=== PATIENT | male | born 2000 | race African-American/Black ===

== ENCOUNTER 2020-01-28 16:57 | Emergency (ER) | payer SELFPAY ==
[~2020-01-28] VITALS: Ht 177.8 cm; Wt 141.0 kg
[2020-01-28 17:11] VITALS: BP 146/89
== END 2020-01-28 20:09 | disposition home or self-care (01) ==
LOC: ER 17:06
DX: Z76.89 Persons encountering health services in other specified circumstances (principal)
CPT/HCPCS: 93005; 99283

== ENCOUNTER 2021-05-25 23:12 | Inpatient (IN) | payer OTHER ==
[~2021-05-25] VITALS: Ht 180.3 cm; Wt 196.9 kg
[2021-05-25] MEDS ORDERED: IPRATROPIUM BROMIDE (0.02%) 0.5MG/2.5ML NEB HHN STA (23:25)
[2021-05-26] VITALS (7 sets, daily range): BP systolic 100–141; BP diastolic 52–82
[2021-05-26 00:05] LABS: BASOPHILS % 0.3 % (0.0-2.0); EOSINOPHILS % 2.4 % (0.0-5.0); HEMATOCRIT. 37.2 % (42.0-52.0); HEMOGLOBIN. 12.2 g/dL (14.0-18.0); LYMPHOCYTES % 14.6 % (20.0-50.0); MEAN CORPUSCULAR HEMOGLOBIN 23.5 pg (28.0-32.0); MEAN CORPUSCULAR VOLUME 71.9 fL (80.0-94.0); MEAN PLATELET VOLUME 7.3 fl (7.4-10.4); MONOCYTES % 3.9 % (2.0-8.0); NEUTROPHILS % 78.8 % (40.0-76.0); PLATELET 355 x1000/uL (130-400); RED BLOOD CELL COUNT 5.18 mill/uL (4.7-6.1); RED CELL DISTRIBUTION WIDTH 18.7 % (11.6-14.6)
[2021-05-26 00:10] LABS: CHLORIDE 107 mEq/L (98-107)
[2021-05-26] MEDS: ALBUTEROL (0.083%) 2.5MG/3ML NEB HHN SCH ×2 (00:32→01:07)
[2021-05-26] MEDS ORDERED: IPRATROPIUM BROMIDE (0.02%) 0.5MG/2.5ML NEB HHN STA (00:35)
[2021-05-26] MEDS ORDERED: SODIUM CHLORIDE 0.9% 1,000 ML IV ONE (00:45)
[2021-05-26] MEDS ORDERED: LORAZEPAM 1MG TABLET PO ONE (01:00)
[2021-05-26] MEDS ORDERED: LORAZEPAM 2MG/ML CPJ IV ONE (01:30)
[2021-05-26 01:36] LABS: *AMPHETAMINES SCREEN URINE NEGATIVE (NEGATIVE); *BARBITURATES SCREEN URINE NEGATIVE (NEGATIVE); *BENZODIAZEPINES SCREEN URINE PRESUMTIVE POSITIVE (NEGATIVE); *COCAINE SCREEN URINE NEGATIVE (NEGATIVE)
[2021-05-26 01:37] LABS: CANNABINOID URINE SCREEN NEGATIVE (NEGATIVE); METHADONE URINE SCREEN NEGATIVE (NEGATIVE); OPIATES URINE SCREEN NEGATIVE (NEGATIVE); PHENCYCLIDINE URINE SCREEN NEGATIVE (NEGATIVE)
[2021-05-26] MEDS ORDERED: ADENOSINE 3 MG/ML 2ML VIAL IV ONE (02:00)
[2021-05-26] MEDS ORDERED: DIPHENHYDRAMINE 50MG/ML VIAL IV ONE (02:15)
[2021-05-26] MEDS: METOPROLOL TARTRATE 50MG TABLET PO SCH ×2 (05:32→18:05)
[2021-05-26] MEDS: ACETAMINOPHEN 325MG TABLET PO PRN (10:16)
[2021-05-26] MEDS ORDERED: CEFTRIAXONE 1 G PREMIX 50 ML IV SCH (11:00)
[2021-05-26] MEDS ORDERED: ONDANSETRON 4MG/5ML UDC PO NR (13:00)
[2021-05-26] MEDS: IPRATROPIUM BROMIDE (0.02%) 0.5MG/2.5ML NEB HHN SCH ×3 (13:08→21:16)
[2021-05-26] MEDS ORDERED: IPRATROPIUM/ALBUTEROL 0.5-3(2.5)MG/3ML NEB HHN PRN (14:00)
[2021-05-26] MEDS: CEFTRIAXONE 1,000 MG in DEXTROSE 5% WATER 50 ML IV SCH (15:03)
[2021-05-26] MEDS: AZITHROMYCIN 500 MG in DEXT 5% WATER 250 ML IV SCH (16:06)
[2021-05-26] MEDS: GUAIFENESIN 600MG ER TABLET PO SCH (22:19)
[2021-05-27] VITALS (11 sets, daily range): BP systolic 93–144; BP diastolic 40–93
[2021-05-27] MEDS: IPRATROPIUM BROMIDE (0.02%) 0.5MG/2.5ML NEB HHN SCH ×4 (02:14→21:25)
[2021-05-27] MEDS: METOPROLOL TARTRATE 50MG TABLET PO SCH (06:15)
[2021-05-27] MEDS: GUAIFENESIN 600MG ER TABLET PO SCH ×2 (09:29→20:49)
[2021-05-27 12:45] LABS: BG BASE EXCESS -0.2 mmol/L (-2.0-2.0); BG CARBOXYHEMOGLOBIN 0.2 % (0.5-1.5); BG FRACTION INSPIRED OXYGEN 21; BG HCO3 ACT 24.5 mmol/L (22.0-26.0); BG METHEMOGLOBIN 0.2 % (0.0-1.5); BG OXYHEMOGLOBIN 92.6 % (94.0-97.0); BG PCO2 40.5 mmHg (35.0-45.0); BG PO2 66.4 mmHg (75.0-100.0); BG SAMPLE SITE RIGHT RADIAL; BG TOTAL HEMOGLOBIN 12.6 g/dL (12.0-18.0); BG VENT MODE ROOM AIR
[2021-05-27] MEDS: CEFTRIAXONE 1,000 MG in DEXTROSE 5% WATER 50 ML IV SCH (13:50)
[2021-05-27] MEDS: AZITHROMYCIN 500 MG in DEXT 5% WATER 250 ML IV SCH (15:18)
[2021-05-27] MEDS: METOPROLOL TARTRATE 100MG TABLET PO SCH (18:17)
[2021-05-28] VITALS (8 sets, daily range): BP systolic 117–149; BP diastolic 54–90
[2021-05-28] MEDS: IPRATROPIUM BROMIDE (0.02%) 0.5MG/2.5ML NEB HHN SCH ×2 (00:53→08:41)
[2021-05-28] MEDS ORDERED: LORAZEPAM 1MG TABLET PO PRN (04:00)
[2021-05-28] MEDS: ACETAMINOPHEN 325MG TABLET PO PRN (04:58)
[2021-05-28] MEDS: METOPROLOL TARTRATE 100MG TABLET PO SCH (05:39)
[2021-05-28 07:31] LABS: HEMATOCRIT 36.6 % (42.0-52.0); HEMOGLOBIN 11.7 g/dL (14.0-18.0); MEAN CORPUSCULAR HEMOGLOBIN 22.7 pg (28.0-32.0); MEAN CORPUSCULAR VOLUME 71.2 fL (80.0-94.0); PLATELET 389 x1000/uL (130-400); RED BLOOD CELL COUNT 5.14 mill/uL (4.7-6.1); RED CELL DISTRIBUTION WIDTH 19.4 % (11.6-14.6)
[2021-05-28] MEDS: GUAIFENESIN 600MG ER TABLET PO SCH (10:05)
[2021-05-28] MEDS ORDERED: ALBU18HF2 IH (11:30)
[2021-05-28] MEDS ORDERED: AZIT250T12 MT (11:30)
== END 2021-05-28 17:14 | disposition home or self-care (01) | DRG 720 ==
LOC: ER 23:12 → 5EST 05-26 03:36
PROVIDERS: ADMIT Internal Medicine; ATTEND Internal Medicine
DX: A41.9 Sepsis, unspecified organism (principal); J96.00 Acute respiratory failure, unspecified whether with hypoxia or hypercapnia; E44.1 Mild protein-calorie malnutrition; Z68.44 Body mass index [BMI] 60.0-69.9, adult; F41.9 Anxiety disorder, unspecified; D64.9 Anemia, unspecified; E66.01 Morbid (severe) obesity due to excess calories; Z20.822 Contact with and (suspected) exposure to COVID-19; F31.9 Bipolar disorder, unspecified; J45.909 Unspecified asthma, uncomplicated; Z87.01 Personal history of pneumonia (recurrent); J06.9 Acute upper respiratory infection, unspecified; Z71.3 Dietary counseling and surveillance
CPT/HCPCS: 36415; 36600; 71045; 80053; 80305; 82375; 82805; 83880; 84145; 84484; 85025; 85027; 85379; 87426; 94640; 99291; J0153; J0456; J0696; J1200; J2060; J7030; J7060